=== PATIENT | male | born 2005 | race Caucasian/White ===

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

== ENCOUNTER 2024-02-14 16:48 | Emergency (ER) | payer OTHER ==
[2024-02-14 17:09] VITALS: TEMP 98.2
--- NOTE | 2024-02-14 17:27 | ED ---
URI HPI - General Source: patient, family, RN notes reviewed Mode of arrival: ambulatory Limitations: no limitations <Oumou Patel - Last Filed: 02/14/24 17:26> <Mary Jane Zhou - Last Filed: 02/21/24 01:10> - General Chief Complaint: Upper Respiratory Infection Stated Complaint: SOB Time Seen by Provider: 02/14/24 17:26 - History of Present Illness Initial Comments: Quick 18-year-old male presenting for cough x 3 days with associated sore throat and nasal congestion. Denies fever, shortness of breath, chest pain. Denies cardiac or pulmonary history. (Oumou Patel) 18-year-old male presenting with chief complaint of cough. Has been ongoing for 3 days. Patient is also had associated sore throat and nasal congestion. No fever, difficulty breathing, chest pain. No nausea vomiting or abdominal pain. (Mary Jane Zhou) - Related Data Home Medications Medication Instructions Recorded Confirmed Acetaminophen [Children's Tylenol] 320 mg PO Q6H PRN 10/13/15 10/13/15 Dexmethylphenidate HCl [Focalin Xr] 30 mg PO QAM 10/13/15 10/13/15 Previous Rx's Medication Instructions Recorded Acetaminophen with Codeine 1 tab PO Q6H #20 tab 10/13/15 [Tylenol w/codeine #3] Azithromycin [Zithromax Z Pack] 0 tab PO DIRECTED #6 tab 09/03/21 predniSONE 50 mg PO DAILY #5 tab 09/03/21 predniSONE [Deltasone] 20 mg PO BID 5 Days #10 tab 02/14/24 Allergies Allergy/AdvReac Type Severity Reaction Status Date / Time No Known Allergies Allergy Verified 02/14/24 17:05 Review of Systems ROS Other: All systems not noted in ROS Statement are negative. <Oumou Patel - Last Filed: 02/14/24 17:26> ROS Other: All systems not noted in ROS Statement are negative. <Mary Jane Zhou - Last Filed: 02/21/24 01:10> ROS Statement: Those systems with pertinent positive or pertinent negative responses have been documented in the HPI. Past Medical History Additional Past Medical History / Comment(s): autism, ODD History of Any Multi-Drug Resistant Organisms: None Reported Past Surgical History: No Surgical Hx Reported Past Psychological History: ADD/ADHD Smoking Status: Never smoker Past Alcohol Use History: None Reported Past Drug Use History: None Reported <Oumou Patel - Last Filed: 02/14/24 17:26> General Exam Limitations: no limitations <Oumou Patel - Last Filed: 02/14/24 17:26> Limitations: no limitations General appearance: alert, in no apparent distress Head exam: Present: atraumatic, normocephalic, normal inspection Eye exam: Present: normal appearance, EOMI ENT exam: Present: normal exam, mucous membranes moist Neck exam: Present: normal inspection. Absent: meningismus Respiratory exam: Present: normal lung sounds bilaterally. Absent: respiratory distress, wheezes, rales, rhonchi, stridor Cardiovascular Exam: Present: regular rate, normal rhythm, normal heart sounds. Absent: systolic murmur, diastolic murmur, rubs, gallop, clicks Neurological exam: Present: alert, oriented X3 Psychiatric exam: Present: normal affect, normal mood Skin exam: Present: warm, dry <Mary Jane Zhou - Last Filed: 02/21/24 01:10> - General Exam Comments Initial Comments: Visual Physical Exam Vital signs reviewed General: Well-appearing, nontoxic, no acute distress. Head: Normocephalic, atraumatic Eyes: PERRLA, EOMI ENT: Airway patent Chest: Nonlabored breathing Skin: No visual rash, normal skin tone Neuro: Alert and oriented 3 Musculoskeletal: No gross abnormalities (Oumou Patel) Course Vital Signs 02/14/24 02/14/24 02/14/24 17:05 19:51 21:40 Temperature 98.2 F Pulse Rate 108 H 102 H Respiratory 22 22 20 Rate Blood Pressure 105/67 114/74 O2 Sat by Pulse 97 98 Oximetry Medical Decision Making <Oumou Patel - Last Filed: 02/14/24 17:26> <Mary Jane Zhou - Last Filed: 02/21/24 01:10> - Medical Decision Making I completed the quick note portion of this chart signed Oumou Patel PA-C (Oumou Patel) Was pt. sent in by a medical professional or institution (, PA, RESIDENTIAL FRAMING CARPENTER, urgent care, hospital, or penitentiary...) When possible be specific @ -No Did you speak to anyone other than the patient for history (EMS, parent, family, police, friend...)? What history was obtained from this source @ -Father Did you review nursing and triage notes (agree or disagree)? Why? @ -I reviewed and agree with nursing and triage notes Were old charts reviewed (outside hosp., previous admission, EMS record, old EKG, old radiological studies, urgent care reports/EKG's, penitentiary records)? Report findings @ -No old charts were reviewed Differential Diagnosis (chest pain, altered mental status, abdominal pain women, abdominal pain men, vaginal bleeding, weakness, fever, dyspnea, syncope, headache, dizziness, GI bleed, back pain, seizure, CVA, palpatations, mental health, musculoskeletal)? @ -Differential includes URI, bronchitis, pneumonia, this is not an all- inclusive list EKG interpreted by me (3pts min.). @ -As above X-rays interpreted by me (1pt min.). @ -X-ray shows no acute pulmonary process. No significant change from prior. CT interpreted by me (1pt min.). @ -None done U/S interpreted by me (1pt. min.). @ -None done What testing was considered but not performed or refused? (CT, X-rays, U/S, labs)? Why? @ -None What meds were considered but not given or refused? Why? @ -None Did you discuss the management of the patient with other professionals (professionals i.e. , PA, RESIDENTIAL FRAMING CARPENTER, lab, RT, psych nurse, geriatric social worker, marketing designer, teacher, special loan officer, patient case manager)? Give summary @ -No Was smoking cessation discussed for >3mins.? @ -No Was critical care preformed (if so, how long)? @ -No Were there social determinants of health that impacted care today? How? (Homelessness, low income, unemployed, alcoholism, drug addiction, transportation, low edu. Level, literacy, decrease access to med. care, shelter, rehab)? @ -No Was there de-escalation of care discussed even if they declined (Discuss DNR or withdrawal of care, Hospice)? DNR status @ -No What co-morbidities impacted this encounter? (DM, HTN, Smoking, COPD, CAD, Cancer, CVA, ARF, Chemo, Hep., AIDS, mental health diagnosis, sleep apnea, morbid obesity)? @ -None Was patient admitted / discharged? Hospital course, mention meds given and route, prescriptions, significant lab abnormalities, going to OR and other pertinent info. @ -18-year-old male presenting with chief complaint of cough congestion and sore throat. Workup initiated by triage. He is negative for influenza, RSV, COVID, group A strep. Chest x-ray shows no acute process. Patient is later placed in room and evaluated by myself. Patient and father educated on today's findings. Patient's presentation appears consistent with bronchitis. Treated with short course of steroids. Follow-up with PCP. Report back to ER with any new or worsening symptoms. Discussed return parameters and answered all questions. Patient conveyed verbal understanding and agreed to the plan. I discussed this case in detail with my attending Dr. Kam Undiagnosed new problem with uncertain prognosis? @ -No Drug Therapy requiring intensive monitoring for toxicity (Heparin, Nitro, Insulin, Cardizem)? @ -No Were any procedures done? @ -No Diagnosis/symptom? @ -Bronchitis Acute, or Chronic, or Acute on Chronic? @ -Acute Uncomplicated (without systemic symptoms) or Complicated (systemic symptoms)? @ -Uncomplicated Side effects of treatment? @ -No Exacerbation, Progression, or Severe Exacerbation? @ -Low likelihood Poses a threat to life or bodily function? How? (Chest pain, [place], [place], pneumonia, PE, COPD, DKA, ARF, appy, cholecystitis, CVA, Diverticulitis, Homicidal, Suicidal, threat to staff... and all critical care pts) @ -No (Mary Jane Zhou) - Lab Data Lab Results 02/14/24 02/14/24 Range/Units 19:51 19:51 Influenza Type A (PCR) Not Detected (Not Detectd) Influenza Type B (PCR) Not Detected (Not Detectd) RSV (PCR) Not Detected (Not Detectd) SARS-CoV-2 (PCR) Not Detected (Not Detectd) Group A Strep (PCR) NOT DETECTED (Not Detectd) Disposition <Oumou Patel - Last Filed: 02/14/24 17:26> Is patient prescribed a controlled substance at d/c from ED?: No Time of Disposition: 21:34 <Mary Jane Zhou - Last Filed: 02/21/24 01:10> Clinical Impression: Upper respiratory tract infection Disposition: HOME SELF-CARE Condition: Good Instructions (If sedation given, give patient instructions): Upper Respiratory Infection (ED) Additional Instructions: Follow-up with PCP. Report back to ER with any new or worsening symptoms. Take Motrin and Tylenol as needed for symptomatic control. Take medication as prescribed. Prescriptions: predniSONE [Deltasone] 20 mg PO BID 5 Days #10 tab Referrals: Jordan Menon MD [Primary Care Provider] - 1-2 days
--- NOTE | 2024-02-14 18:05 | XR ---
EXAMINATION TYPE: XR chest 2V DATE OF EXAM: 02/14/2024 CLINICAL HISTORY: Cough and shortness of breath TECHNIQUE: Frontal and lateral views of the chest are obtained. COMPARISON: Chest x-ray September 03, 2021 FINDINGS: There is no focal air space opacity, pleural effusion, or pneumothorax seen. The cardiac silhouette size is within normal limits. The osseous structures are intact. IMPRESSION: No acute pulmonary process. No significant change from prior. [facility], , 02/14/2024 6:03 PM
[2024-02-14 21:44] VITALS: BP 114/74; PULSE 102; RESP 20
== END 2024-02-14 21:40 | disposition home or self-care (01) ==
LOC: EC 16:48
DX: J06.9 Acute upper respiratory infection, unspecified (principal); J40 Bronchitis, not specified as acute or chronic
CPT/HCPCS: 71046; 87636; 87651; 99285